=== PATIENT | male | born 1965 | race Caucasian/White ===

== ENCOUNTER → 2025-02-19 11:14 | Outpatient (CLI) | payer OTHER, SELFPAY ==
[2025-03-03 09:39] LABS: Percent Free Testosterone 2.88 % (1.50-4.20); Testosterone Free 9.02 ng/dL (5.00-21.00); Testosterone Total 313.2 ng/dL (264.0-916.0)
== END ==
PROVIDERS: PCP Family Medicine; Referring Provider Family Medicine; Visit Provider Family Medicine
DX: R68.82 Decreased libido (principal); R33.9 Retention of urine, unspecified
CPT/HCPCS: 36415; 84402; 84403